=== PATIENT | male | born 1945 | race Caucasian/White ===

== ENCOUNTER 2016-12-15 08:39 | Emergency (ER) | payer BC, MEDICARE ==
[~2016-12-15] VITALS: Ht 180.3 cm; Wt 100.9 kg
[2016-12-15] MEDS ORDERED: HYDROmorphone 1 MG/ML, 1ML IM PRN (10:00)
[2016-12-15] MEDS ORDERED: ONDANSETRON ODT 4 MG PO ONE (10:00)
[2016-12-15] MEDS ORDERED: ONDANSETRON ODT 4 MG ONE (10:07)
[2016-12-15] MEDS ORDERED: HYDROmorphone 1 MG/ML, 1ML ONE (10:07)
[2016-12-15 11:07] VITALS: BP 154/67
[2016-12-15] MEDS ORDERED: BACITRACIN ZINC OINT 500U/GM, 0.9 GM ONE (11:14)
== END 2016-12-15 11:34 | disposition home or self-care (01) ==
LOC: ED 10:46
DX: S22.31XA Fracture of one rib, right side, initial encounter for closed fracture (principal); S83.91XA Sprain of unspecified site of right knee, initial encounter; W01.0XXA Fall on same level from slipping, tripping and stumbling without subsequent striking against object, initial encounter; Y93.89 Activity, other specified; Y99.8 Other external cause status; Y92.488 Other paved roadways as the place of occurrence of the external cause
CPT/HCPCS: 71101; 73564; 93005; 96372; 99284; J1170; Q0162